=== PATIENT | female | born 1975 | race Caucasian/White ===

== ENCOUNTER 2016-08-17 23:29 | Emergency (ER) | payer OTHER ==
[~2016-08-17] VITALS: Ht 172.7 cm; Wt 59.0 kg
[2016-08-17] MEDS ORDERED: ZOLOFT100 MG ORAL (23:48)
[2016-08-17] MEDS ORDERED: ABILIFY2 MG ORAL (23:48)
[2016-08-18] MEDS ORDERED: Clindamycin 600mg 50 ML IVPB ONE
[2016-08-18] MEDS ORDERED: CLINDAMYCIN HC300 MG ORAL (00:52)
--- NOTE | 2016-08-18 00:52 | Emergency Room Report ---
History of Present Illness General Chief Complaint: Wound Recheck/Suture Removal Source: Patient Present Illness HPI Is a 40-year-old female who is left-hand dominant. She presents with chief complaint of infection to the left hand and forearm. She was hiking 2 days ago and slipped and fell. She put her hand out to break her fall. Her left hand hit the ground and sustained abrasion to the palm. She continue hiking and went home. Woke up the next day and she see redness of her arm. Denies any trauma. Minimal pain. No drainage. No fever or chills. Pain is 5/10. No other injury. Allergies: Coded Allergies: No Known Allergies (Unverified , 08/17/16) Patient History Past Medical History: none Past Surgical History: none Pertinent Family History: none Social History: Denies: smoking Last Menstrual Period: august Now: No Immunizations: UTD Reviewed Nursing Documentation: PMH: Agreed, PSxH: Agreed Nursing Documentation-PMH History Of Psychiatric Problem: Yes - DEPRESSION Review of Systems Eye: Denies: blurred vision, eye pain ENT: Denies: ear pain, nose congestion, throat swelling Respiratory: Denies: cough, shortness of breath Cardiovascular: Denies: chest pain, palpitations Gastrointestinal: Denies: abdominal pain, diarrhea, nausea, vomiting Musculoskeletal: Denies: back pain, joint pain Skin: Denies: rash Neurological: Denies: headache, numbness Endocrine: Denies: increased thirst, increased urine Hematologic/Lymphatic: Denies: easy bruising All Other Systems: negative except mentioned in HPI Physical Exam Vital Signs Date Time Temp Pulse Resp B/P Pulse Ox O2 Delivery O2 Flow Rate FiO2 08/17/16 23:40 98.1 80 16 123/77 98 Room Air vitals normal. Sp02 EP Interpretation: reviewed, normal General Appearance: well appearing, no apparent distress, alert Head: normocephalic, atraumatic Eyes: bilateral eye EOMI, bilateral eye PERRL ENT: hearing grossly normal, normal pharynx Neck: full range of motion, supple, no meningismus Respiratory: chest non-tender, lungs clear, normal breath sounds Cardiovascular #1: regular rate, rhythm, no murmur Gastrointestinal: normal bowel sounds, non tender, no mass, no organomegaly, no bruit, non-distended Musculoskeletal: back normal, gait/station normal, normal range of motion, other - left hand: abrasion to base of palm. redness streaking up mid forearm. Neurologic: alert, oriented x3 Psychiatric: mood/affect normal Skin: warm/dry Medical Decision Making Diagnostic Impression: Primary Impression: Lymphangitis ER Course Patient present with a fall and has minimal abrasion to the palm of the hand. No foreign body. No abscess. She does have lymphangitic spread of the cellulitis. I see no evidence of septic joint. No evidence of necrotizing fasciitis. She received IV antibiotics here. We'll discharge home with clindamycin. Other X-Ray Diagnostic Results Other X-Ray Diagnostic Results : X-Ray Ordered: left hand xrays Date: August 18, 2016 Time: 00:51 EP Interpretation: Yes Findings: no fractures, no dislocation, no soft tissue swelling Number of Views: 2 Last Vital Signs Date Time Temp Pulse Resp B/P Pulse Ox O2 Delivery O2 Flow Rate FiO2 08/17/16 23:40 98.1 80 16 123/77 98 Room Air Status: improved Disposition: HOME, SELF-CARE Condition: Stable Scripts Clindamycin Hcl (CLINDAMYCIN HCL) 300 Mg Capsule 300 MG ORAL THREE TIMES A DAY, #21 CAP Prov: CLOVIS FLORES M.D. 08/18/16 Referrals: NOT CHOSEN [facility]/,REFERRING (PCP) Additional Instructions: Followup with your doctor in 2-3 days for recheck. Return if worse. CLOVIS FLORES M.D. August 18, 2016 00:52
[2016-08-18 00:55] VITALS: BP 123/77
--- NOTE | 2016-08-18 13:58 | Diagnostic Imaging Report ---
Indication: pain Findings: 3 views of the left hand were obtained. Normal bony mineralization and alignment are demonstrated. No acute fractures, erosions, or periosteal reaction are seen. Soft tissues are unremarkable. Impression: Negative examination of the left hand.
== END 2016-08-18 00:58 | disposition home or self-care (01) ==
LOC: EMR 23:58
DX: I89.1 Lymphangitis (principal); Z86.59 Personal history of other mental and behavioral disorders; S60.512A Abrasion of left hand, initial encounter; W01.0XXA Fall on same level from slipping, tripping and stumbling without subsequent striking against object, initial encounter; Y93.01 Activity, walking, marching and hiking; Y92.9 Unspecified place or not applicable
CPT/HCPCS: 96374; S0077